=== PATIENT | male | born 1980 | race Caucasian/White ===

== ENCOUNTER → 2016-10-21 | Outpatient (CLI) | payer OTHER ==
[~2016-10-21] MED LIST: FLEXERIL10 MG PO; MOBIC15 MG PO; PRILOSEC40 MG PO; ULTRAM50 MG PO; XANAX0.5 MG PO
== END | disposition short-term general hospital (02) ==
LOC: CLNEUR 11:59
DX: Z47.89 Encounter for other orthopedic aftercare (principal)